=== PATIENT | male | born 1935 | race Caucasian/White ===

== ENCOUNTER 2017-05-01 15:27 | Inpatient (IN) ==
[2017-05-01] MEDS ORDERED: NS 1,000 ML IV ONE (16:13)
[2017-05-01 17:58] LABS: MANUAL DIFF NEEDED? NO
--- NOTE | 2017-05-01 17:58 | Diag Imaging Result Doc PS360 ---
CHEST-2 VIEWS - 05/01/2017 INDICATION: g.i. bleed TECHNIQUE: COMPARISON: 09/02/2015 FINDINGS: Stable pacemaker. Stable cardiomegaly. Pulmonary vascularity is grossly normal. Lung volumes are lower with some bronchovascular crowding centrally. No obvious infiltrates. No pneumothorax or pleural effusion. IMPRESSION: Lower lung volumes with increasing bronchovascular crowding. Mild cardiomegaly. Electronically signed by King Staton 05/01/2017 5:56 PM
[2017-05-01 18:01] LABS: BASO% 0.4 % (0.0-0.8); EOS# 0.13 X1000 (0.0-0.7); EOS% 1.4 % (0.0-10.0); HEMATOCRIT 43.6 % (42.0-52.0); HEMOGLOBIN 14.8 g/dL (14.0-18.0); IMM GRAN# 0.02 X1000 (0.0-0.04); IMM GRAN% 0.2 % (0.0-0.5); LYMPH# 1.13 X1000 (1.2-3.4); LYMPH% 11.8 % (20.5-51.1); MCH 31.2 PG (27-31); MCHC 33.9 g/dL (33-37); MONO% 14.7 % (1.7-9.3); MPV 10.2 FL (7.4-10.4); NEUT% 71.5 % (42.2-75.2); PLT 176 X1000 (130-400); RBC 4.74 XMIL (4.7-6.1)
[2017-05-01 18:14] LABS: INR 1.08; PROTIME 11.4 Seconds (9.2-11.7); PTT 26.7 Seconds (22.0-36.0)
[2017-05-01 18:45] LABS: AGAP 15; ALBUMIN 3.8 g/dL (3.5-5.0); ALKALINE PHOSPHATASE 64 U/L (32-122); BUN 20 mg/dL (8-22); CALCIUM 9.6 mg/dL (8.8-10.2); CHLORIDE 101 mmol/L (98-107); COSMO 283; GPT 32 U/L (10-44); POTASSIUM 4.6 mmol/L (3.5-5.1); SODIUM 139 mmol/L (136-145); TCO2 23 mmol/L (25-35); TOTAL PROTEIN 6.5 g/dL (6.3-8.3)
[2017-05-01 18:59] LABS: GOT 40 U/L (10-34)
[2017-05-01] MEDS ORDERED: ZOFRAN IV PRN (21:17)
[2017-05-01] MEDS ORDERED: TYLENOL PO PRN (21:17)
[2017-05-01] MEDS: COREG PO SCH (21:46)
[2017-05-01] MEDS: NEURONTIN PO SCH (21:46)
[2017-05-01] MEDS: DESYREL PO SCH (21:46)
[2017-05-01] MEDS: ZYLOPRIM PO SCH (21:46)
[2017-05-01] MEDS: TUCKS HEMORRHOIDAL OINTMENT PR SCH (22:04)
[2017-05-02 01:48] LABS: URINE CULTURE NEEDED? NO; URINE MICRO REVIEW NEEDED? NO; URINE SOURCE CLEAN CATCH
[2017-05-02 02:03] LABS: BILIRUBIN URINE NEGATIVE (NEGATIVE); BLOOD URINE NEGATIVE (NEGATIVE); COLOR YELLOW; GLUCOSE URINE NEGATIVE (NEGATIVE); LEUKOCYTES URINE NEGATIVE (NEGATIVE); NITRITE URINE NEGATIVE (NEGATIVE); PROTEIN URINE TRACE mg/dL (NEGATIVE); SP GRAVITY URINE 1.018; TURBIDITY URINE CLEAR (CLEAR); UROBILINOGEN URINE 2 mg/dL (NORMAL)
[2017-05-02 02:04] LABS: UR EPITHELIAL CELLS <10 /HPF (<10); URINE BACTERIA NEGATIVE /HPF; URINE RBC <10 /HPF (<10); URINE WBC <10 /HPF (<10)
--- NOTE | 2017-05-02 03:41 | HISTORY AND PHYSICAL ---
HISTORY OF PRESENT ILLNESS: This is an 82-year-old who presented to the emergency room on 05/01/2017. His had called me on Monday. He is a patient of Dr. Morales. He had been having some bleeding from the rectum. The patient told me that he had been hurting in his rectum now for a couple of weeks and very sore down there. On rectal examination, he does have some external hemorrhoids I can appreciate, very tight tender and irritated, loose liquid stool. He denies abdominal pain. He denies fever or chills. We had stopped the Zyprexa I believe. He was on an anticoagulant. PAST MEDICAL HISTORY: 1. Paroxysmal atrial fibrillation, sustained ventricular arrhythmia. 2. Ischemic cardiomyopathy Class 2. 3. History of atrial fibrillation with direct current cardioversion that was back on 11/15/2013. He has an ejection fraction of 30%, Class 2 symptomatology. He has been stable from that standpoint. Breathing comfortably. No chest pain. SOCIAL HISTORY: No tobacco, alcohol or illicit drugs. FAMILY HISTORY: Noncontributory. REVIEW OF SYSTEMS: General: No weight gain or loss. No fever or chills. HEENT: Unremarkable. Respiratory: No increased work of breathing or dyspnea. Cardiovascular: No chest pain or tachy palpitations. Gastrointestinal: Unremarkable. Genitourinary: Unremarkable. Musculoskeletal/Neurologic: No complaints. He does not feel real good but denies pain. He does feel kind of puny and lethargic. PHYSICAL EXAMINATION: VITAL SIGNS: Temp 98 degrees, pulse 80, respirations 16, blood pressure 139/79, O2 saturation 96%. Weight 190 pounds. Height 5 feet 11 inches. HEENT: Pupils are equal, round. LUNGS: Clear in all lung seay. CARDIOVASCULAR: Regular rhythm and rate without murmur or S3. ABDOMEN: Soft. SKIN: Warm and dry. RECTAL EXAMINATION: Very tender. No ulcers. External hemorrhoids appreciated. Very tender and painful for him to get a rectal examination, tight sphincter tone. LABS: Pending at this time. ASSESSMENT AND PLAN: 1. Rectal bleeding. I am going to hold his Pradaxa. Hold any anticoagulant or nonsteroidal anti- inflammatory aspirin at this point. He has a lot of irritation around the rectal opening, external hemorrhoid. We will see if we can start incorporating a sitz bath for him a couple of times a day. I asked Dr. Muniz to help with management. We will check a digoxin level. 2. Coronary artery disease, ischemic cardiomyopathy, ejection fraction 30%. He has been well- compensated. We will be careful with the fluids. His volume status looks good. 3. Diabetes mellitus type 2. We will follow his pattern sugars. 4. History of paroxysmal atrial fibrillation. Apparently he has sustained ventricular arrhythmia. He has had a history of cardioversion a couple of years ago. He appears to be hemodynamically stable at this point. I do think we have to hold the Pradaxa. We will check labs, electrolytes, check urine for culture, CBC. We will give him blood if needed. cc: Ulices Oliveira MD
[2017-05-02 05:10] LABS: MANUAL DIFF NEEDED? NO
[2017-05-02 05:19] LABS: BASO% 0.4 % (0.0-0.8); EOS# 0.24 X1000 (0.0-0.7); EOS% 2.9 % (0.0-10.0); HEMATOCRIT 42.9 % (42.0-52.0); HEMOGLOBIN 14.3 g/dL (14.0-18.0); LYMPH# 1.25 X1000 (1.2-3.4); LYMPH% 15.1 % (20.5-51.1); MCH 30.8 PG (27-31); MCHC 33.3 g/dL (33-37); MCV 92.5 FL (81-99); MONO# 1.25 X1000 (0.11-0.59); MONO% 15.1 % (1.7-9.3); MPV 10.3 FL (7.4-10.4); NEUT% 66.5 % (42.2-75.2); PLT 166 X1000 (130-400); RBC 4.64 XMIL (4.7-6.1)
--- NOTE | 2017-05-02 05:30 | EKG Report ---
Test Performed on : 05/01/2017 4:40:28 PM Test Reason : g.i. bleed Blood Pressure : / mmHG Vent. Rate : 082 BPM Atrial Rate : 077 BPM P-R Int : 000 ms QRS Dur : 192 ms QT Int : 482 ms P-R-T Axes : 000 -83 013 degrees QTc Int : 563 ms Ventricular-paced rhythm Abnormal ECG When compared with ECG of 01-MAY-2017 16:35, (Unconfirmed) No significant change was found Unconfirmed Result
[2017-05-02 05:31] LABS: AGAP 13; ALBUMIN 3.5 g/dL (3.5-5.0); ALKALINE PHOSPHATASE 59 U/L (32-122); BUN 18 mg/dL (8-22); CALCIUM 8.6 mg/dL (8.8-10.2); CHLORIDE 105 mmol/L (98-107); CK PROFILE 171 U/L (24-204); COSMO 282; GOT 33 U/L (10-34); GPT 26 U/L (10-44); POTASSIUM 4.3 mmol/L (3.5-5.1); SODIUM 140 mmol/L (136-145); TCO2 22 mmol/L (25-35); TOTAL BILIRUBIN 0.88 mg/dL (0.20-1.00); TOTAL PROTEIN 6.1 g/dL (6.3-8.3)
[2017-05-02] MEDS: PRILOSEC PO SCH (06:15)
[2017-05-02] MEDS: ALDACTONE PO SCH (09:44)
[2017-05-02] MEDS: IMDUR PO SCH (09:44)
[2017-05-02] MEDS: LANOXIN PO SCH (09:44)
[2017-05-02] MEDS: FLAGYL PO SCH ×3 (09:44→17:28)
[2017-05-02] MEDS: FOLTX PO SCH (09:44)
[2017-05-02] MEDS: COZAAR PO SCH (09:45)
[2017-05-02] MEDS: COREG PO SCH ×2 (09:45→20:42)
[2017-05-02] MEDS: ARICEPT PO SCH (09:45)
[2017-05-02] MEDS: NEURONTIN PO SCH ×2 (09:45→20:42)
[2017-05-02] MEDS: KLOR-CON PO SCH (09:45)
[2017-05-02] MEDS: TUCKS HEMORRHOIDAL OINTMENT PR SCH ×2 (09:45→20:41)
[2017-05-02] MEDS: ZOCOR PO SCH (09:45)
[2017-05-02] MEDS ORDERED: MISC. PHARMACY COMMUNICATION SCH (13:30)
--- NOTE | 2017-05-02 13:55 | CONSULTATION ---
DATE OF CONSULTATION: 05/02/2017 REASON FOR REFERRAL: Rectal bleeding. HISTORY OF PRESENT ILLNESS: This is an 82-year-old, white male, who reports onset of rectal bleeding on Monday. His is at the bedside. She states he has a history of hemorrhoids. She has not been able to get him to use sitz baths or his suppositories that he has at home. He denies constipation or having to strain. He does report some rectal pain. He usually has a bowel movement daily. He uses MiraLAX at home daily. He takes Pradaxa and aspirin. Those have been held since admission. Last colonoscopy noted from our office was in [address] Moss. EGD showed gastritis and a stomach polyp. Colonoscopy showed diverticulosis and hemorrhoids. No reported abdominal pain. On examination by Dr. Oliveira, he noted external hemorrhoids. MEDICAL HISTORY: Atrial fibrillation, ischemic cardiomyopathy. SOCIAL HISTORY: No reported alcohol or tobacco use. ALLERGIES: To codeine causing nausea. HOME MEDICATIONS: Lopressor 50 mg daily. Lasix 40 mg daily. Desyrel 100 mg every night, MiraLAX 17 g daily. Allopurinol 300 mg every night. Potassium 20 mEq daily. Protonix 40 mg daily. Cozaar 25 mg daily. Aricept 10 mg daily. Lanoxin 125 mcg daily. Foltx 1 daily, aspirin 81 mg daily. Gabapentin 600 mg twice daily. Pradaxa 150 mg twice daily. REVIEW OF SYSTEMS: Per HPI. PHYSICAL EXAM: Vital Signs: Temperature 98.1, pulse 80, respirations 18, blood pressure 100/57. General: Patient is awake and alert. No acute distress. HEENT: Normocephalic, atraumatic. Pupils equal, round, reactive to light. Sclerae nonicteric. Respiratory: Lung sounds clear bilaterally. Cardiovascular: Regular rate and rhythm. Abdomen: Soft, nontender. Positive bowel sounds. Extremities: No lower extremity edema noted. Rectal Exam: Was deferred. Note from Dr. Oliveira on rectal exam, with findings of external hemorrhoids, and tight sphincter tone. DIAGNOSTIC RESULTS: Laboratory: Hematology, white count 8.29, hemoglobin 14.3, hematocrit 42.9. MCV 92.5. Platelet 166. Coagulation: Pro time 11.4. INR 1.08. PTT 26.7. Chemistry: Sodium 140, potassium 4.3, chloride 105, CO2 of 22, BUN 18, creatinine 0.9, glucose 103, calcium 8.6. ASSESSMENT AND PLAN: 1. Rectal bleeding. 2. Hemorrhoids. 3. Coronary artery disease/ischemic cardiomyopathy. 4. Atrial fibrillation. He is on Pradaxa and aspirin. 5. Rectal irritation. PLAN: Continue supportive care. He has not complained of constipation or straining. Rectal bleeding most likely from hemorrhoid. His last colonoscopy was in 2006. I have discussed the option of possible colonoscopy while he is in the hospital. Further plans will be made according to Dr. Muniz. We will continue to follow. Further plans will be made as needed. Dictated by MINI Lopez for Cali Muniz MD cc: MINI Hoffman MD M. Neel Roberts, MD
[2017-05-02] MEDS: NON-FORMULARY BULK MED PO SCH (17:28)
[2017-05-02] MEDS: ZYLOPRIM PO SCH (20:42)
[2017-05-02] MEDS: DESYREL PO SCH (20:42)
[2017-05-03] MEDS: NON-FORMULARY BULK MED PO SCH (05:55)
[2017-05-03] MEDS: PRILOSEC PO SCH (08:57)
[2017-05-03] MEDS: KLOR-CON PO SCH (08:57)
[2017-05-03] MEDS: IMDUR PO SCH (08:57)
[2017-05-03] MEDS: LANOXIN PO SCH (08:57)
[2017-05-03] MEDS: ARICEPT PO SCH (08:58)
[2017-05-03] MEDS: COREG PO SCH ×2 (08:58→21:00)
[2017-05-03] MEDS: FOLTX PO SCH (08:58)
[2017-05-03] MEDS: NEURONTIN PO SCH ×2 (08:58→21:00)
[2017-05-03] MEDS: FLAGYL PO SCH ×3 (08:58→17:18)
[2017-05-03] MEDS: ZOCOR PO SCH (08:58)
[2017-05-03] MEDS: COZAAR PO SCH (08:58)
[2017-05-03] MEDS: ALDACTONE PO SCH (08:58)
[2017-05-03] MEDS: TUCKS HEMORRHOIDAL OINTMENT PR SCH ×2 (08:59→21:11)
--- NOTE | 2017-05-03 09:03 | PROGRESS NOTE ---
DATE: 05/03/2017 SUBJECTIVE: Mr. Odonnell was admitted to [facility] with a lower GI bleed. He has been passing small amounts of bright red blood per rectum. He denies any crampy abdominal pain. He denies any nausea or vomiting. His blood counts have remained stable. Blood pressure is stable. He has had a previous colonoscopy with polypectomy several years ago. He has a history of paroxysmal atrial fibrillation. He remains in normal sinus rhythm. He denies any chest pain, palpitations or anginal equivalents. He still has intermittent diarrhea, but stool studies were negative for C. difficile toxin and antigen. OBJECTIVE: Vital signs: Temperature 98.2 degrees, pulse 85, respirations 18, BP 111/53. CV: Regular rate and rhythm. Lungs: Clear. Abdomen: Soft, nontender, with active bowel sounds. ASSESSMENT AND PLAN: Lower gastrointestinal bleed. On rectal examination he did not have any significant external hemorrhoids. Potential etiologies for the bleeding include arteriovenous malformations, polyps or even a colon malignancy. I am going to recheck a hemoglobin and hematocrit this morning. Dr. Muniz is planning to proceed with a colonoscopy later today. cc: Kadie Morales MD
[2017-05-03 09:20] LABS: HEMATOCRIT 39.9 % (42.0-52.0); HEMOGLOBIN 13.1 g/dL (14.0-18.0)
[2017-05-03] MEDS ORDERED: DIPRIVAN 1% ONE (16:35)
[2017-05-03] MEDS ORDERED: EPHEDRINE ONE (16:40)
[2017-05-03] MEDS: ZYLOPRIM PO SCH (20:59)
[2017-05-03] MEDS ORDERED: PERICOLACE PO SCH (21:00)
[2017-05-03] MEDS: DESYREL PO SCH (21:00)
--- NOTE | 2017-05-04 05:51 | OPERATIVE NOTE ---
PROCEDURE DATE: 05/03/2017 PROCEDURE PERFORMED: Colonoscopy and biopsy. PREOPERATIVE DIAGNOSIS: Rectal bleeding. POSTOPERATIVE DIAGNOSES: 1. Ulcer, rectum, and visible vessel in the anal canal. 2. Diverticulosis. MEDICATION USED: MAC as per Anesthesia. SCOPE USED: Olympus [id number] HISTORY: This is an 82-year-old gentleman admitted to hospital with rectal bleeding. Colonoscopy was done to identify the etiology and treat accordingly. DESCRIPTION OF PROCEDURE: Informed consent was obtained from the patient, as well as his . The procedure, risks, benefits, and alternatives were explained in layman's terms. He understood. All his pertinent questions were answered. The patient was brought to the endoscopy unit and was premedicated as per Anesthesia. After adequate sedation, while he was lying in the left lateral position, digital rectal exam was performed, which was normal. Scope was then gently introduced into the rectum and advanced under direct vision through the parts of colon, all the way up to the cecum. The cecum was identified by ileocecal valve and the appendiceal orifice. The scope was then passed through the normal ileocecal valve into the terminal ileum. About 5-8 cm of terminal ileum was examined, which was normal. Scope was withdrawn back in the cecum, back through the parts of the colon, all the way to the rectum, paying attention to details. Preparation was good. The visualized portion of the colon revealed scattered diverticula, mostly on the left side of the colon, predominantly in the sigmoid colon. No evidence of diverticulitis or diverticular bleeding noted. No polyps, tumors, cancers were seen. The rectum was examined both in straight and retroflexed view, which revealed a circumferential ulcer right at the dentate line. The appearance of this ulcer was suggestive of stercoral ulcer. The edges were smooth, and it was not overhanging. Multiple biopsies were obtained using cold biopsy forceps to rule out neoplastic lesion. On withdrawal through the anal canal, I did see a dark pigmented spot, most likely the area where he had bled from, suggestive of possible external hemorrhoid, which has stopped bleeding now. The scope was then removed. Patient tolerated the procedure well. No complications noted. Patient was then transferred to the recovery area in a stable condition. IMPRESSION: 1. Stercoral ulcer anal canal. 2. External hemorrhoid. 3. Diverticulosis. 4. Otherwise, no polyps, tumors, cancers were seen. RECOMMENDATIONS: 1. I would advise him to start a high fiber, high residue diet, and drink plenty of water daily. 2. Start Mahogany-Colace 2 p.o. every night. 3. Recommended sitz baths, and follow up the biopsy report. 4. Follow up with the office after discharge from the hospital Case was discussed with Dr. Eduardo Morales. cc: MD Kadie Bird MD
[2017-05-04] MEDS: PRILOSEC PO SCH (06:02)
[2017-05-04 07:17] VITALS: BP 118/82
[2017-05-04] MEDS: ARICEPT PO SCH (08:17)
[2017-05-04] MEDS: ZOCOR PO SCH (08:17)
[2017-05-04] MEDS: COREG PO SCH (08:17)
[2017-05-04] MEDS: KLOR-CON PO SCH (08:17)
[2017-05-04] MEDS: LANOXIN PO SCH (08:17)
[2017-05-04] MEDS: IMDUR PO SCH (08:17)
[2017-05-04] MEDS: FOLTX PO SCH (08:17)
[2017-05-04] MEDS: FLAGYL PO SCH (08:18)
[2017-05-04] MEDS: COZAAR PO SCH (08:18)
[2017-05-04] MEDS: NEURONTIN PO SCH (08:18)
[2017-05-04] MEDS: ALDACTONE PO SCH (08:18)
[2017-05-04] MEDS: TUCKS HEMORRHOIDAL OINTMENT PR SCH (08:18)
--- NOTE | 2017-05-16 17:08 | DISCHARGE SUMMARY ---
ADMISSION DATE: 05/01/2017 DISCHARGE DATE: 05/04/2017 DISCHARGE DIAGNOSES: 1. Lower gastrointestinal bleed secondary to rectal ulcer. 2. Essential hypertension. 3. Ischemic heart disease. 4. Paroxysmal atrial fibrillation. 5. 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 6. Gastroesophageal reflux disease. 7. Vascular dementia. 8. Recurrent gout. DISCHARGE INSTRUCTIONS: 1. Return to clinic in 1 week to see me, Dr. Eduardo Morales, in anticipation of a transition of care visit. 2. Activity as tolerated. 3. Healthy heart diet. 4. Medications: Coreg 6.25 mg b.i.d., Tucks Hemorrhoidal Ointment apply to external hemorrhoid b.i.d., simvastatin 20 mg at bedtime, Aldactone 12.5 mg daily, Imdur 60 mg daily, Mahogany-Colace 100 mg b.i.d., Pradaxa 150 mg b.i.d., gabapentin 600 mg b.i.d., KCl 20 mEq daily, Foltx 1 p.o. daily, digoxin 125 mcg daily, Desyrel 100 mg at bedtime, allopurinol 300 mg daily, MiraLAX 17 g in 8 ounces of water daily, Losartan 25 mg daily, pantoprazole 40 mg daily, Aricept 10 mg daily, Lasix 40 mg daily, metoprolol 50 mg daily. DISCHARGE PHYSICAL EXAMINATION: This is an elderly, frail, 82-year-old gentleman in no apparent distress. He is afebrile. Vital signs are stable. Cardiovascular: Regular rate and rhythm. Lungs clear. Abdomen soft, nontender, with active bowel sounds. HOSPITAL COURSE: Mr. Odonnell was admitted to [facility] with a lower GI bleed. He had been passing small amounts of bright red blood per rectum. He would see blood on the tissue paper and in the commode. On examination he did have very irritated external hemorrhoids. He had been taking Pradaxa 150 mg b.i.d. because of paroxysmal atrial fibrillation. We held the Pradaxa. We followed serial blood counts. His hemoglobin and hematocrit were 14.8 and 43.6 on admission and were 13.1 and 39.9 on discharge. We consulted Dr. Muniz who performed a colonoscopy which demonstrated an ulcer of the rectum. He felt that the ulcer was related to chronic constipation. The patient was started on MiraLAX and Colace. We also advised him to use sitz baths because of the inflamed external hemorrhoids. He has a longstanding history of paroxysmal atrial fibrillation. He remained in normal sinus rhythm. His heart rate was well controlled on Coreg. We did feel that given hemodynamic stability and stable blood counts, that it was safe for him to resume the Pradaxa. We felt that the risk of stroke off Pradaxa outweighed the risks of bleeding on the Pradaxa. He has a history of hypertension, his blood pressure remained stable. He denied any chest pain, palpitations, or anginal equivalents. Having reached maximum hospital benefit, the patient was discharged in stable condition. cc: Kadie Morales MD
== END 2017-05-04 11:44 | disposition home health service (06) ==
LOC: ED 15:27 → EDIPHOLD 18:42 → 3S 20:12
PROVIDERS: ADMIT Internal Medicine; ATTEND Internal Medicine